=== PATIENT | male | born 1995 | race African-American/Black ===

== ENCOUNTER 2019-04-12 00:40 | Emergency (ER) | payer MEDICAID, OTHER ==
[~2019-04-12] VITALS: Ht 180.3 cm; Wt 109.5 kg
[~2019-04-12 00:40] MED LIST: ALBU8HFA IH; LORA10TA7 PO
[2019-04-12] MEDS ORDERED: AUD NEB (01:06)
[2019-04-12 04:00] VITALS: BP 124/77
[2019-04-12] MEDS ORDERED: CefTRIAXone SODIUM 1 GM/VIAL IM ONE (04:45)
[2019-04-12] MEDS ORDERED: AZITHROMYCIN 250 MG TABLET PO ONE (04:45)
== END 2019-04-12 04:10 | disposition home or self-care (01) ==
LOC: EMS 00:42
DX: N50.89 Other specified disorders of the male genital organs (principal); R21 Rash and other nonspecific skin eruption; Z76.0 Encounter for issue of repeat prescription
CPT/HCPCS: 96372; 99283; J0696

== ENCOUNTER 2019-06-11 04:40 | Emergency (ER) | payer OTHER ==
[~2019-06-11] VITALS: Ht 180.3 cm; Wt 109.1 kg
[~2019-06-11 04:40] MED LIST changes: +AUD NEB; -LORA10TA7 PO
[2019-06-11] MEDS ORDERED: ALBUTEROL SULFATE 2.5 MG/0.5 ML NEB SOLUTION NEB ONE (05:15)
[2019-06-11] MEDS ORDERED: IPRATROPIUM BROMIDE 0.5 MG/2.5 ML NEB SOLUTION NEB ONE (05:15)
[2019-06-11] MEDS ORDERED: PredniSONE 20 MG TABLET PO ONE (05:15)
[2019-06-11 06:23] VITALS: BP 135/91
== END 2019-06-11 06:30 | disposition home or self-care (01) ==
LOC: EMS 04:42
DX: J45.909 Unspecified asthma, uncomplicated (principal); Z76.0 Encounter for issue of repeat prescription; Z79.899 Other long term (current) drug therapy; Z91.013 Allergy to seafood
CPT/HCPCS: 94640; 99283; J7512

== ENCOUNTER 2019-07-01 21:34 | Emergency (ER) | payer OTHER ==
[~2019-07-01] VITALS: Ht 177.8 cm; Wt 109.0 kg
[2019-07-01 21:49] LABS: GLUCOSE,POINT OF CARE 300 MG/DL (70-110)
[2019-07-01] MEDS ORDERED: IPRATROPIUM BROMIDE 0.5 MG/2.5 ML NEB SOLUTION NEB ONE (23:15)
[2019-07-01] MEDS ORDERED: ALBUTEROL SULFATE 2.5 MG/0.5 ML NEB SOLUTION NEB ONE (23:15)
[2019-07-01 23:39] VITALS: BP 147/75
== END 2019-07-02 00:22 | disposition home or self-care (01) ==
LOC: EMS 21:35
DX: J45.909 Unspecified asthma, uncomplicated (principal); L73.9 Follicular disorder, unspecified; F12.90 Cannabis use, unspecified, uncomplicated; Z91.013 Allergy to seafood
CPT/HCPCS: 94640

== ENCOUNTER 2019-09-12 16:09 | Emergency (ER) | payer OTHER ==
[~2019-09-12] VITALS: Ht 180.3 cm; Wt 113.6 kg
[2019-09-12 16:11] VITALS: BP 141/74
== END 2019-09-12 17:10 | disposition home or self-care (01) ==
LOC: EMS 16:09
DX: N50.89 Other specified disorders of the male genital organs (principal); J45.909 Unspecified asthma, uncomplicated; F12.90 Cannabis use, unspecified, uncomplicated; R03.0 Elevated blood-pressure reading, without diagnosis of hypertension

== ENCOUNTER 2019-10-03 15:30 | Emergency (ER) | payer MEDICAID, OTHER ==
[~2019-10-03] VITALS: Ht 180.3 cm; Wt 113.6 kg
[2019-10-03] MEDS ORDERED: OLAN5TAB27 PO (17:09)
[2019-10-03 17:15] VITALS: BP 125/79
[2019-10-03 18:12] LABS: BASOPHILS % (AUTO) 0.4 % (0.0-2.0); EOSINOPHILS % (AUTO) 2.3 % (1.0-6.0); HEMATOCRIT 47.5 % (41-53); HEMOGLOBIN 15.1 g/dL (13.5-17.5); LYMPHOCYTES # (AUTO) 1.9 K/uL (1.0-4.8); LYMPHOCYTES % (AUTO) 24.2 % (22.0-44.0); MEAN CORPUSCULAR HEMOGLOBIN 29.8 pg (26.0-34.0); MEAN CORPUSCULAR HGB CONC 31.8 G/dL (31.0-37.0); MEAN CORPUSCULAR VOLUME 94 fL (80-100); MONOCYTES # (AUTO) 0.5 K/uL (0.1-1.0); MONOCYTES % (AUTO) 5.7 % (2.0-9.0); NEUTROPHILS # (AUTO) 5.4 K/uL (1.8-7.7); NEUTROPHILS % (AUTO) 67.4 % (40.0-70.0); PLATELET COUNT (AUTO) 171 K/uL (150-450); RED BLOOD CELL COUNT(AUTO) 5.08 MIL/uL (4.50-5.90); RED CELL DISTRIBUTION WIDTH 12.8 % (11.5-14.5)
[2019-10-03 18:17] LABS: ANION GAP 8 mmol/L (8-16); CARBON DIOXIDE 27 mmol/L (22-29); CHLORIDE 103 mmol/L (98-107); CREATININE 0.82 mg/dL (0.60-1.30); GLOMERULAR FILTR. RATE CALC > 60 mL/min (>60); GLUCOSE,RANDOM 96 mg/dL (70-110); POTASSIUM 3.4 mmol/L (3.5-5.1); SODIUM SERUM 138 mmol/L (136-145); UREA NITROGEN, BLOOD 11 mg/dL (7-18)
[2019-10-03 18:31] LABS: ALANINE AMINOTRANSFERASE 59 U/L (12-78); ALBUMIN 4.2 g/dL (3.4-5.0); ALKALINE PHOSPHATASE 132 U/L (46-116); ASPARTATE AMINOTRANSFERASE 33 U/L (15-37); BILIRUBIN,TOTAL 0.4 mg/dL (0.1-1.0); TOTAL PROTEIN, SERUM 7.9 g/dL (6.4-8.2)
[2019-10-03 18:35] LABS: AMPHET/METH SCREEN,URINE NEGATIVE (NEGATIVE); BARBITURATE SCREEN, URINE NEGATIVE (NEGATIVE); BENZODIAZEPINES SCREEN,URINE NEGATIVE (NEGATIVE); CANNABINOID SCREEN,URINE POSITIVE (NEGATIVE); COCAINE SCREEN,URINE NEGATIVE (NEGATIVE); METHADONE SCREEN, URINE NEGATIVE (NEGATIVE); OPIATE SCREEN,URINE NEGATIVE (NEGATIVE)
[2019-10-03 18:36] LABS: PHENCYCLIDINE SCREEN,URINE NEGATIVE (NEGATIVE)
== END 2019-10-03 18:53 | disposition home or self-care (01) ==
LOC: EMS 15:32
DX: F98.9 Unspecified behavioral and emotional disorders with onset usually occurring in childhood and adolescence (principal); B35.4 Tinea corporis; J45.909 Unspecified asthma, uncomplicated; F20.9 Schizophrenia, unspecified; F12.90 Cannabis use, unspecified, uncomplicated; Z91.013 Allergy to seafood
CPT/HCPCS: 36415; 80053; 80307; 85025; 99284; G0480

== ENCOUNTER 2020-07-05 19:49 | Emergency (ER) | payer MEDICAID ==
[~2020-07-05] VITALS: Ht 180.3 cm; Wt 109.1 kg
[~2020-07-05 19:49] MED LIST changes: +OLAN5TAB27 PO
[2020-07-05 21:30] VITALS: BP 120/68
[2020-07-05] MEDS ORDERED: ALBUTEROL SULFATE HFA 90 MCG/PUFF 8 GM INHALER IH ONE (21:30)
== END 2020-07-05 22:00 | disposition home or self-care (01) ==
LOC: EMS 19:56
DX: J45.901 Unspecified asthma with (acute) exacerbation (principal); F12.10 Cannabis abuse, uncomplicated; F20.9 Schizophrenia, unspecified
CPT/HCPCS: 94640; 99283; J3535

== ENCOUNTER 2020-07-27 22:03 | Emergency (ER) | payer MEDICAID ==
[~2020-07-27] VITALS: Ht 180.3 cm; Wt 100.0 kg
[2020-07-27] MEDS ORDERED: PredniSONE 20 MG TABLET PO ONE (22:45)
[2020-07-27] MEDS ORDERED: ALBUTEROL SULFATE HFA 90 MCG/PUFF 8 GM INHALER IH ONE (22:45)
[2020-07-27 23:24] VITALS: BP 118/68
== END 2020-07-27 23:25 | disposition home or self-care (01) ==
LOC: EMS 22:06
DX: J45.909 Unspecified asthma, uncomplicated (principal); F20.9 Schizophrenia, unspecified; F12.90 Cannabis use, unspecified, uncomplicated
CPT/HCPCS: 94640; 99283; J7512; J3535

== ENCOUNTER 2020-08-11 00:21 | Emergency (ER) | payer MEDICAID ==
[~2020-08-11] VITALS: Ht 180.3 cm; Wt 120.5 kg
[2020-08-11 00:45] VITALS: BP 145/70
[2020-08-11] MEDS ORDERED: ALBUTEROL SULFATE HFA 90 MCG/PUFF 8 GM INHALER IH ONE (00:45)
== END 2020-08-11 03:18 | disposition home or self-care (01) ==
LOC: EMS 00:23
DX: J45.909 Unspecified asthma, uncomplicated (principal); Z53.21 Procedure and treatment not carried out due to patient leaving prior to being seen by health care provider
CPT/HCPCS: J3535

== ENCOUNTER 2020-10-04 10:02 | Emergency (ER) | payer MEDICAID ==
[~2020-10-04] VITALS: Ht 180.3 cm; Wt 111.4 kg
[2020-10-04] MEDS ORDERED: PRED1 PO (10:15)
[2020-10-04 11:10] VITALS: BP 129/74
== END 2020-10-04 11:32 | disposition home or self-care (01) ==
LOC: EMS 10:09
DX: J45.901 Unspecified asthma with (acute) exacerbation (principal); F20.9 Schizophrenia, unspecified; F12.90 Cannabis use, unspecified, uncomplicated; Z87.891 Personal history of nicotine dependence; Z91.013 Allergy to seafood
CPT/HCPCS: 99283

== ENCOUNTER 2020-12-16 21:58 | Emergency (ER) | payer MEDICAID, OTHER ==
[~2020-12-16] VITALS: Ht 180.3 cm; Wt 111.4 kg
[~2020-12-16 21:58] MED LIST changes: -OLAN5TAB27 PO; +OLAN5TAB77 PO; +PRED1 PO
[2020-12-16] MEDS ORDERED: PRED20 PO (22:50)
[2020-12-16 23:44] VITALS: BP 112/63
[2020-12-16] MEDS ORDERED: ALBUTEROL SULFATE HFA 90 MCG/PUFF 8 GM INHALER IH ONE (23:45)
== END 2020-12-16 23:44 | disposition home or self-care (01) ==
LOC: EMS 22:02
DX: J45.909 Unspecified asthma, uncomplicated (principal); Z76.0 Encounter for issue of repeat prescription; F20.9 Schizophrenia, unspecified; Z87.891 Personal history of nicotine dependence; Z79.899 Other long term (current) drug therapy
CPT/HCPCS: 94640; 99283; J3535

== ENCOUNTER 2020-12-29 17:41 | Emergency (ER) | payer OTHER ==
[~2020-12-29] VITALS: Ht 180.3 cm; Wt 113.6 kg
[~2020-12-29 17:41] MED LIST changes: -ALBU8HFA IH; -OLAN5TAB77 PO; -PRED1 PO; +PRED20 PO
[2020-12-29 17:44] VITALS: BP 127/81
== END 2020-12-29 17:59 | disposition home or self-care (01) ==
LOC: EMS 17:42
DX: J45.909 Unspecified asthma, uncomplicated (principal); F20.9 Schizophrenia, unspecified; F12.90 Cannabis use, unspecified, uncomplicated; Z91.013 Allergy to seafood; Z79.899 Other long term (current) drug therapy; Z87.891 Personal history of nicotine dependence
CPT/HCPCS: 99281; Z7502